=== PATIENT | female | born 1940 | race Caucasian/White ===

== ENCOUNTER 2018-06-06 17:00 | Outpatient (CLI) | payer OTHER | END 2018-06-06 17:06 | disposition home or self-care (01) | LOC: LAB 17:00 → RAD 17:00 | DX: I10 Essential (primary) hypertension (principal) ==

== ENCOUNTER 2019-04-13 09:59 | Outpatient (CLI) | payer OTHER | END 2019-04-13 10:23 | disposition home or self-care (01) | LOC: NUCLEAR 09:59 | DX: I20.1 Angina pectoris with documented spasm (principal) | CPT/HCPCS: 78452; 93017; A9500; J0153 ==

== ENCOUNTER 2021-11-18 07:44 | Outpatient (CLI) | payer OTHER | END 2021-11-18 07:45 | disposition home or self-care (01) | LOC: NUCLEAR 07:44 | DX: I73.9 Peripheral vascular disease, unspecified (principal) ==

== ENCOUNTER 2022-04-17 15:52 | Emergency (ER) | payer OTHER ==
[~2022-04-17] VITALS: Ht 160 cm; Wt 72.6 kg
[2022-04-17] MEDS ORDERED: TENORMIN25 MG (16:06)
[2022-04-17] MEDS ORDERED: LEVOTHYROXINE25 MCG (16:07)
[2022-04-17] MEDS ORDERED: XARELTO10 M1 (16:07)
== END 2022-04-17 18:20 | disposition home or self-care (01) ==
LOC: ER 15:52
DX: R68.84 Jaw pain (principal); I11.0 Hypertensive heart disease with heart failure; I50.9 Heart failure, unspecified